=== PATIENT | female | born 1945 | race Caucasian/White ===

== ENCOUNTER 2020-09-12 18:37 | Observation (INO) | payer MEDICARE ==
[~2020-09-12 18:37] MED LIST: Iopamidol-370 76% 500 ML 1 ML ONE
[2020-09-12 19:26] LABS: #Eosinphils 0.2 thou/uL (0.0-0.7); #Lymphocytes 1.6 thou/uL (1.20-3.40); %Basophils 0.4 % (0.0-1.0); %Eosinophils 2.1 % (0.0-10.0); %Lymphocytes 14.9 % (21.0-51.0); %Neutrophils 73.6 % (42.0-75.0); Hemoglobin 12.2 g/dL (12.0-16.0); Mean Corpuscular HGB CONC 33.7 g/dL (32.0-36.0); Mean Corpuscular Hemoglobin 30.7 pg (27.0-31.0); Mean Corpuscular Volume 91.1 fL (78.0-98.0); Mean Platelet Volume 8.5 fL (7.4-10.4); Platelet Count 214 thou/uL (130-400); RBC Distribution Width 11.2 % (11.5-14.5); Red Blood Cell (RBC) Count 3.98 mill/uL (4.20-5.40); White Blood Cell (WBC) Count 10.9 thou/uL (4.8-10.8)
[2020-09-12 19:48] LABS: ALT (SGPT) 26 U/L (8-55); AST (SGOT) 18 U/L (5-34); Albumin 3.9 g/dL (3.4-4.8); Alkaline Phosphatase 139 U/L (40-110); Anion Gap 17 mmol/L (10-20); BUN (Urea Nitrogen) 41 mg/dL (9.8-20.1); Bilirubin, Total 0.5 mg/dL (0.2-1.2); CK (CPK) 84 U/L (29-168); Calc. Creatinine Clearance 0 mL/min (70-130); Calcium 9.1 mg/dL (7.8-10.44); Carbon Dioxide 18 mmol/L (23-31); Chloride 107 mmol/L (98-107); Globulin 3.1 g/dL (2.4-3.5); Glucose 263 mg/dL (83-110); Potassium 4.2 mmol/L (3.5-5.1); Sodium 138 mmol/L (136-145)
[2020-09-13] MEDS ORDERED: Senokot S 8.6-50 MG TAB PO PRN (00:41)
[2020-09-13] MEDS ORDERED: Acetaminophen 325 MG TAB PO PRN (00:41)
[2020-09-13] MEDS ORDERED: Dextrose 50% Abboject 50 ML SYRINGE SLOW IVP PRN (01:18)
[2020-09-13] MEDS ORDERED: Dextrose 5% in Water 1,000 ML IV PRN (01:18)
[2020-09-13] MEDS ORDERED: HumaLOG 300 UNITS/3 ML VIAL SC PRN ×2 (01:18)
[2020-09-13 01:19] LABS: Troponin I Less than 0.010 ng/mL (< 0.028)
[2020-09-13] MEDS ORDERED: hydrALAZINE 20 MG/ML VIAL SLOW IVP PRN (01:44)
[2020-09-13 01:45] LABS: SARS-CoV-2 NAA Rapid Test Not Detected (NotDetected)
[2020-09-13 03:32] VITALS: BMI 36.2
[2020-09-13 04:31] LABS: Bilirubin Negative (Negative); Blood, Urine Negative (Negative); Glucose, Urine (Dipstick) 100 mg/dL (Negative); Ketone, Urine Negative (Negative); Leukocyte Negative (Negative); Nitrite Negative (Negative); Protein, Urine (Dipstick) Negative (Neg-Trace); Urobilinogen 0.2 mg/dL (Less than 2); pH, Urine 6.5 (5.0-9.0)
[2020-09-13 04:45] LABS: Clarity Clear (Clear); Specific Gravity, Urine 1.014 (1.002-1.036)
[2020-09-13 04:47] LABS: Urine Culture Reflex No No
[2020-09-13 04:53] LABS: Bacteria/HPF None Seen HPF (None Seen); RBC/HPF 0-3 HPF (0-3); Squamous Epithelial 0-3 HPF (0-3); WBC/HPF 0-3 HPF (0-3)
[2020-09-13 05:24] LABS: #Basophils 0.1 thou/uL (0.0-0.2); #Eosinphils 0.2 thou/uL (0.0-0.7); #Lymphocytes 2.5 thou/uL (1.20-3.40); #Monocytes 0.8 thou/uL (0.11-0.59); #Neutrophils 4.9 thou/uL (1.40-6.50); %Basophils 0.8 % (0.0-1.0); %Eosinophils 2.6 % (0.0-10.0); %Lymphocytes 29.5 % (21.0-51.0); %Monocytes 9.1 % (0.0-10.0); %Neutrophils 58.1 % (42.0-75.0); Hemoglobin 11.9 g/dL (12.0-16.0); Mean Corpuscular HGB CONC 33.7 g/dL (32.0-36.0); Mean Corpuscular Hemoglobin 30.4 pg (27.0-31.0); Mean Corpuscular Volume 90.3 fL (78.0-98.0); Mean Platelet Volume 8.1 fL (7.4-10.4); Platelet Count 215 thou/uL (130-400); RBC Distribution Width 11.2 % (11.5-14.5); Red Blood Cell (RBC) Count 3.91 mill/uL (4.20-5.40); White Blood Cell (WBC) Count 8.4 thou/uL (4.8-10.8)
[2020-09-13 05:44] LABS: ALT (SGPT) 25 U/L (8-55); AST (SGOT) 18 U/L (5-34); Albumin 3.8 g/dL (3.4-4.8); Alkaline Phosphatase 131 U/L (40-110); Anion Gap 14 mmol/L (10-20); BUN (Urea Nitrogen) 35 mg/dL (9.8-20.1); Bilirubin, Total 0.6 mg/dL (0.2-1.2); Calc. Creatinine Clearance 41 mL/min (70-130); Calcium 9.4 mg/dL (7.8-10.44); Carbon Dioxide 19 mmol/L (23-31); Cardiac Risk 2.3 (Less than 4.5); Chloride 106 mmol/L (98-107); Cholesterol 118 mg/dl (< 200 Desired); Globulin 2.9 g/dL (2.4-3.5); Glucose 131 mg/dL (83-110); HDL Cholesterol 52 mg/dL (>60 Neg Risk); LDL Cholesterol, Calculated 47 mg/dL; Protein, Total 6.7 g/dL (5.8-8.1); Sodium 135 mmol/L (136-145); Triglycerides 95 mg/dL (Less than 150)
[2020-09-13 05:48] LABS: Troponin I Less than 0.010 ng/mL (< 0.028)
[2020-09-13] MEDS: Famotidine 20 MG TAB PO SCH (08:43)
[2020-09-13] MEDS: methylPREDNISolone Sod Succ 40 MG VIAL IVP SCH (08:43)
[2020-09-13] MEDS: Enoxaparin Sodium 30 MG/0.3 ML SYRINGE SC SCH (08:43)
[2020-09-13] MEDS ORDERED: Amlodipine 10 MG TAB PO SCH (12:30)
[2020-09-13] MEDS ORDERED: Metoprolol Tartrate 25 MG TAB PO SCH (12:30)
[2020-09-13] MEDS: glipiZIDE 5 MG TAB PO SCH (17:13)
[2020-09-13] MEDS: HumaLOG 300 UNITS/3 ML VIAL SC PRN (17:29)
[2020-09-13] MEDS: Metoprolol Tartrate 25 MG TAB PO SCH (20:19)
[2020-09-13] MEDS ORDERED: Rosuvastatin 20 MG TAB PO SCH (21:00)
[2020-09-13] MEDS ORDERED: Zolpidem Tartrate 5 MG TAB PO PRN (23:10)
[2020-09-14] MEDS: HumaLOG 300 UNITS/3 ML VIAL SC PRN ×2 (05:59→12:10)
[2020-09-14] MEDS ORDERED: Aspirin 81 mg Enteric Coated Tablet PO SCH (09:00)
[2020-09-14] MEDS ORDERED: Ezetimibe 10 MG TAB PO SCH (09:00)
[2020-09-14] MEDS ORDERED: Amlodipine 10 MG TAB PO SCH (09:00)
[2020-09-14] MEDS ORDERED: Citalopram 20 MG TAB PO SCH (09:00)
[2020-09-14] MEDS: methylPREDNISolone Sod Succ 40 MG VIAL IVP SCH (09:02)
[2020-09-14] MEDS: Metoprolol Tartrate 25 MG TAB PO SCH (09:02)
[2020-09-14] MEDS: Enoxaparin Sodium 30 MG/0.3 ML SYRINGE SC SCH (09:02)
[2020-09-14] MEDS: glipiZIDE 5 MG TAB PO SCH ×2 (09:03→12:09)
[2020-09-14] MEDS: Famotidine 20 MG TAB PO SCH (09:03)
[2020-09-14 12:37] VITALS: TEMP 97.9
[2020-09-14 12:53] VITALS: BP 155/69
[2020-09-14] MEDS ORDERED: Doxycycline Hyclate 100 MG in Sodium Chloride 0.9% 250 ML 250 ML IVPB SCH (14:00)
== END 2020-09-14 15:50 | disposition home or self-care (01) ==
LOC: ERS 18:37 → 2SW 09-13 00:16 → INTOOBSV 09-13 00:16
PROVIDERS: ADMIT Internal Medicine; ATTEND Internal Medicine
DX: J45.901 Unspecified asthma with (acute) exacerbation (principal); I12.9 Hypertensive chronic kidney disease with stage 1 through stage 4 chronic kidney disease, or unspecified chronic kidney disease; E11.22 Type 2 diabetes mellitus with diabetic chronic kidney disease; N18.9 Chronic kidney disease, unspecified; I25.2 Old myocardial infarction; E78.5 Hyperlipidemia, unspecified; I25.10 Atherosclerotic heart disease of native coronary artery without angina pectoris; K44.9 Diaphragmatic hernia without obstruction or gangrene; E78.00 Pure hypercholesterolemia, unspecified; I08.3 Combined rheumatic disorders of mitral, aortic and tricuspid valves; Z79.82 Long term (current) use of aspirin; Z79.84 Long term (current) use of oral hypoglycemic drugs; Z79.899 Other long term (current) drug therapy; Z95.1 Presence of aortocoronary bypass graft; Z20.822 Contact with and (suspected) exposure to COVID-19
CPT/HCPCS: 71045; 71275; 80053; 80061; 81001; 82550; 82962 ×2; 83605; 83880; 84484 ×3; 85025; 85379; 93005; 93306; 93971; 94640 ×3; 94760; 96372 ×2; 96374; 96375; 96376; 97116 ×2; 97139; 98960; 99285; G0378 ×3; U0002; U0005; 36415; 36416; 84443; J0360; J1650; J1815; J2920; J3490; J7620; Q9967

== ENCOUNTER 2022-06-29 09:27 | Emergency (ER) | payer MEDICARE ==
[2022-06-29 10:45] LABS: #Basophils 0.1 thou/uL (0.0-0.2); #Eosinphils 0.3 thou/uL (0.0-0.7); #Lymphocytes 1.6 thou/uL (1.20-3.40); #Monocytes 0.8 thou/uL (0.11-0.59); %Basophils 0.6 % (0.0-1.0); %Eosinophils 3.2 % (0.0-10.0); %Lymphocytes 15.9 % (21.0-51.0); %Monocytes 8.1 % (0.0-10.0); %Neutrophils 72.2 % (42.0-75.0); Hemoglobin 12.6 g/dL (12.0-16.0); Mean Corpuscular HGB CONC 32.6 g/dL (32.0-36.0); Mean Corpuscular Hemoglobin 30.8 pg (27.0-31.0); Mean Corpuscular Volume 94.7 fl (78.0-98.0); Mean Platelet Volume 8.6 fL (7.4-10.4); Platelet Count 202 10x3/uL (130-400); RBC Distribution Width 11.3 % (11.5-14.5); Red Blood Cell (RBC) Count 4.09 mill/uL (4.20-5.40); White Blood Cell (WBC) Count 9.7 10x3/uL (4.8-10.8)
[2022-06-29 11:02] LABS: ALT (SGPT) 13 U/L (8-55); AST (SGOT) 18 U/L (5-34); Albumin 3.8 g/dL (3.4-4.8); Alkaline Phosphatase 94 U/L (40-110); Anion Gap 18 mmol/L (10-20); BUN (Urea Nitrogen) 84 mg/dL (9.8-20.1); Bilirubin, Total 0.3 mg/dL (0.2-1.2); CK (CPK) 95 U/L (29-168); Calc. Creatinine Clearance 0 mL/min (70-130); Calcium 8.5 mg/dL (7.8-10.44); Carbon Dioxide 23 mmol/L (23-31); Chloride 99 mmol/L (98-107); Estimated GFR 13; Globulin 2.6 g/dL (2.4-3.5); Glucose 208 mg/dL (83-110); Lipase 48 U/L (8-78); Potassium 3.5 mmol/L (3.5-5.1); Protein, Total 6.4 g/dL (5.8-8.1); Sodium 136 mmol/L (136-145)
[2022-06-29 11:47] LABS: SARS-CoV-2 NAA Rapid Test Not Detected (NotDetected)
[2022-06-29 12:15] LABS: Bilirubin Negative (Negative); Blood, Urine Negative (Negative); Clarity Clear (Clear); Glucose, Urine (Dipstick) Normal (Negative); Ketone, Urine Negative (Negative); Leukocyte Negative Leu/uL (Negative); Nitrite Negative (Negative); Protein, Urine (Dipstick) Negative (Neg-Trace); Specific Gravity, Urine 1.014 (1.002-1.036); Urobilinogen Normal mg/dL (Less than 2); pH, Urine 5.5 (5.0-9.0)
== END 2022-06-29 12:51 | disposition home or self-care (01) ==
LOC: ERS 09:27
DX: R53.1 Weakness (principal); N28.9 Disorder of kidney and ureter, unspecified; E86.0 Dehydration; E11.9 Type 2 diabetes mellitus without complications; E78.00 Pure hypercholesterolemia, unspecified; I11.0 Hypertensive heart disease with heart failure; I50.9 Heart failure, unspecified; Z20.822 Contact with and (suspected) exposure to COVID-19
CPT/HCPCS: 0240U; 70450; 71045; 81003; 82140; 82550; 82962; 83690; 83880; 84484; 93005; 94760; 36415; 36416; 80053; 84443; 85025; 96360; 96361